=== PATIENT | male | born 1995 | race Caucasian/White ===

== ENCOUNTER 2019-12-06 21:14 | Emergency (ER) | payer OTHER ==
[~2019-12-06] VITALS: Ht 177.8 cm; Wt 68.2 kg
[2019-12-06 21:30] VITALS: BP 136/90
[2019-12-06] MEDS ORDERED: ibuprofen tablet 400 MG TABLET PO ONE (22:30)
== END 2019-12-06 22:44 ==
LOC: ER 21:17
DX: S09.90XA Unspecified injury of head, initial encounter (principal); R51 Headache; Z72.89 Other problems related to lifestyle; V87.7XXA Person injured in collision between other specified motor vehicles (traffic), initial encounter; Y93.89 Activity, other specified; Y92.89 Other specified places as the place of occurrence of the external cause; Y99.8 Other external cause status
CPT/HCPCS: 99283